=== PATIENT | male | born 1955 | race Two or more races ===

== ENCOUNTER → 2018-07-09 | Outpatient (CLI) | payer OTHER, BC ==
--- NOTE | 2018-07-09 09:37 | MR ---
EXAMINATION TYPE: MR knee LT wo con DATE OF EXAM: 07/09/2018 COMPARISON: None HISTORY: Left knee pain TECHNIQUE: Multiplanar, multisequence imaging of the left knee is performed without IV contrast. FINDINGS: MEDIAL MENISCUS: There is grade 3 abnormal signal in the posterior horn of the medial meniscus compat ible with a complex tear. There is extrusion of the medial meniscus. LATERAL MENISCUS: Intrasubstance signal seen within the lateral meniscus most typical of myxoid degen eration. CRUCIATE LIGAMENTS: The anterior and posterior cruciate ligaments are intact and unremarkable. COLLATERAL LIGAMENTS: The medial collateral ligament and lateral collateral ligament complex are inta ct. However there is increased signal surrounding the MCL compatible with strain. No definite tear. EXTENSOR MECHANISM: Visualized quadriceps and patellar tendons are intact. EFFUSION: There is a large suprapatellar bursal fluid collection. POPLITEAL CYST: A 2 cm popliteal fossa cyst noted TRICOMPARTMENT SPACES: There is reduction in the joint space of the medial compartment of the knee. T here is loss of cartilage involving the articular surface of the medial component of the tibia and fe mur. Fibrillation and chondromalacia medial patellar and lateral patellar facet noted. BONE MARROW SIGNAL: There is diffuse marrow edema involving the medial tibial plateau and articular s urface of the medial femur. Question a subtle subchondral depression of the medial tibial plateau. Co rrelate for history of recent trauma otherwise consider reactive marrow edema post arthritic changes. OTHER: Diffuse subcutaneous edema noted. IMPRESSION: 1. The left findings compatible with medial meniscal complex posterior horn tear was PseudoExtrusion. Marked arthropathy of the medial compartment knee joint with chondromalacia also noted. There is mar row edema involving the articular surface of the medial tibia and femur which could be reactive secon gila to the arthritic changes. Correlate clinically to exclude recent trauma. 2. MCL strain without evidence of overt tear 3. Diffuse subcutaneous edema 4. Small popliteal fossa cyst. 5. osteoarthritic changes with chondromalacia as discussed above. 6. moderate suprapatellar bursal fluid collection. 7. there is a suggestion of a tiny subchondral depression of the medial tibial plateau which may been the basis of a subchondral fracture.
== END | disposition home or self-care (01) ==
LOC: RADMRIMAIN 07:16
PROVIDERS: ATTEND Orthopaedic Surgery Sports Medicine
DX: M17.12 Unilateral primary osteoarthritis, left knee (principal); M94.262 Chondromalacia, left knee; S86.812A Strain of other muscle(s) and tendon(s) at lower leg level, left leg, initial encounter; M71.22 Synovial cyst of popliteal space [Baker], left knee

== ENCOUNTER → 2018-10-11 | Outpatient (CLI) | payer OTHER, BC ==
--- NOTE | 2018-10-11 16:14 | MR ---
EXAMINATION TYPE: MR lumbar spine wo con DATE OF EXAM: 10/11/2018 COMPARISON: NONE HISTORY: Low back pain, spondylosis without myelopathy, and lumbar region radiculopathy all per order . Tingling back pain for 2 months into right lower extremity per patient. TECHNIQUE: Multiplanar, multisequence imaging of the lumbar spine is performed without IV contrast. FINDINGS: Sagittal images of the lumbar spine show vertebral body heights to appear satisfactory. The re is slight grade 1 anterolisthesis of L4 on L5. Bilateral pars defect L5 level are felt present. Mu ltilevel disc desiccation is seen. There is mild disc space narrowing L1-L2 and L5-S1 levels . . Mul tilevel small posterior disc herniations are seen on sagittal images. The conus medullaris is normal in position and signal ending superior L1 level. Mild to moderate multilevel anterior spurring is see n with heterogeneous endplate changes centered right L1-L2 level. Axial images at T12-L1 level is felt within normal limits. Axial images at L1-L2 level shows mild to moderate broad disc bulge mildly effacing anterior thecal s ac, there is asymmetric mild to moderate right-sided anterior inferior neural foraminal narrowing. Le ft-sided neural foramen is patent. Axial images at L2-L3 level show moderate broad disc bulge mildly effacing anterior thecal sac and ca using mild bilateral anterior inferior neural foraminal narrowing. Mild facet degenerative changes bi laterally are present at this level. Axial images at L3-L4 level show mild/moderate broad-based posterior disc protrusion effacing anterio r thecal sac. There is mild facet degenerative changes and ligament flavum hypertrophy. There is mild to moderate left greater than right bilateral anterior inferior neural foraminal narrowing noted. Axial images at L4-L5 level show spondylolisthesis and broad-based posterior disc protrusion. There i s mild facet degenerative changes seen bilaterally. Spinal canal is preserved. There is mild right-si ded anterior inferior neural foraminal narrowing noted. Left-sided neural foramen is patent. Axial images at L5-S1 level show spondylolisthesis and moderate facet degenerative changes bilaterall y. There is broad-based right paracentral disc protrusion seen. There is effacement of the anterolate ral thecal sac and lateral recess with encroachment on central right S1 nerve felt present axial imag e 3. There is advanced right-sided neural foraminal narrowing encroaching on right L5 nerve also iden tified sagittal image 12. Left-sided neural foramen is patent. No suspicious incidental retroperitoneal findings are seen. IMPRESSION: Spondylolisthesis L5-S1 level with eccentric disc herniation effacing both exiting right L5 and central right S1 nerves likely accounting for patient's radiculopathy type symptoms.
== END | disposition home or self-care (01) ==
LOC: RADMRIMAIN 15:18
PROVIDERS: ATTEND Physical Medicine & Rehabilitation
DX: M43.17 Spondylolisthesis, lumbosacral region (principal); M51.27 Other intervertebral disc displacement, lumbosacral region
CPT/HCPCS: 72148

== ENCOUNTER 2019-07-17 18:45 | Emergency (ER) | payer OTHER, BC ==
[2019-07-17] MEDS ORDERED: ACETAMINOPHEN TAB 500 MG TAB PO STA (19:09)
[2019-07-17] MEDS ORDERED: SODIUM CHLORIDE 0.9% 1,000 ML IV STA (19:09)
--- NOTE | 2019-07-17 19:13 | ED ---
General Adult HPI - General Chief complaint: Fever Stated complaint: Post op fever Time Seen by Provider: 07/17/19 18:55 Source: patient Mode of arrival: ambulatory Limitations: no limitations - History of Present Illness Initial comments: Dictation was produced using [employer] dictation software. please excuse any grammatical, word or spelling errors. Chief Complaint: 64-year-old male presents with postoperative fever. History of Present Illness: Patient is a 64-year-old male. He has past medical history of osteomyelitis and prostate cancer. Patient's 5 days postop from prostatectomy procedure performed at [facility]. Patient had laparoscopic robotic minimally invasive surgery through the abdomen to remove his prostate. Patient was then fine postoperatively until today he began feeling worsening abdominal pain, weakness and fevers. Patient states he felt fine this morning and his symptoms really began to progress approximately 2 hours prior to arrival. He contacted his urologist/primary surgeon told him to come to the emergency department right away. Patient has any drainage from his surgical sites. Denies any nausea vomiting or diarrhea. He states that most of his pain is at the left lower quadrant of his abdomen. Patient denies any chest pain or shortness of breath at this time. Denies any cough. The ROS documented in this emergency department record has been reviewed and confirmed by me. Those systems with pertinent positive or negative responses have been documented in the HPI. All other systems are other negative and/or noncontributory. PHYSICAL EXAM: General Impression: Alert and oriented x3, not in acute distress HEENT: Normocephalic atraumatic, extra-ocular movements intact, pupils equal and reactive to light bilaterally, mucous membranes moist. Cardiovascular: Heart regular rate and rhythm, S1&S2 audible, no murmurs, rubs or gallops Chest: Lungs clear to auscultation bilaterally, no rhonchi, no wheeze, no rales Abdomen: Bowel sounds present, tenderness to the left lower quadrant area. Laparoscopic surgical sites are clean dry and intact without any drainage or erythema Musculoskeletal: Pulses present and equal in all extremities, no peripheral edema Motor: no focal deficits noted Neurological: CN II-XII grossly intact, no focal motor or sensory deficits noted Skin: Intact with no visualized rashes Psych: Normal affect and mood ED course: 64-year-old male presents with fever and abdominal pain status post prostatectomy 5 days ago. As upon arrival shows temperature 101.7. Rest vital signs within acceptable limits. Abdomen evaluation obtained. Mild leukocytosis of 12.3. Metabolic panel is unremarkable. Urinalysis shows greater than 182 red blood cells and greater than 182 white blood cells. This is likely secondary to recent prostatectomy. CT of the abdomen and pelvis was obtained. It showed fairly moderate to large size slightly and retroperitoneal hyperdense focal fluid collection. Findings suspicious for hematoma however there is concern for abscess. Given his clinical findings there is suspicion that CT findings may be an infectious source. Patient given 1 dose of Zosyn. Discussed patient case Dr. Meadows who is cap and hat production supervisor for Dr. Dinh who initially performed the prostatectomy procedure. Dr. Meadows recommend that that patient be given oral antibiotics however left to the patient to decide if they want to go directly to [facility] for further care. Patient and family member decided that they wanted to drive down here private vehicle to [facility] for urology evaluation. Discussed patient case with [facility] emergency Dr. Oden who is aware of patient for transfer. Patient will try via private vehicle. EKG interpretation: Ventricular rate 92, normal sinus rhythm, OR interval 132, QS 102, QTc 45. No OR prolongation, no QTC prolongation, no ST or T-wave changes noted. Overall, this EKG is unremarkable - Related Data Home Medications Medication Instructions Recorded Confirmed Acetaminophen [Tylenol Extra 500 mg PO Q6H PRN 07/17/19 07/17/19 Strength] Bacitracin Oint 1 applic TOPICAL TID 07/17/19 07/17/19 Docusate [Colace] 100 mg PO DAILY 07/17/19 07/17/19 Ibuprofen [Motrin Ib] 400 mg PO Q6H PRN 07/17/19 07/17/19 oxyCODONE HCL [OxyIR] 5 mg PO TID PRN 07/17/19 07/17/19 Allergies Allergy/AdvReac Type Severity Reaction Status Date / Time No Known Allergies Allergy Verified 07/17/19 19:36 Review of Systems ROS Statement: Those systems with pertinent positive or pertinent negative responses have been documented in the HPI. ROS Other: All systems not noted in ROS Statement are negative. Past Medical History Additional Past Medical History / Comment(s): Osteomyelitis right arm History of Any Multi-Drug Resistant Organisms: None Reported Past Surgical History: No Surgical Hx Reported Past Psychological History: No Psychological Hx Reported Smoking Status: Former smoker Past Alcohol Use History: Occasional Past Drug Use History: None Reported - Past Family History Father Family Medical History: Cancer Mother Family Medical History: Congestive Heart Failure (CHF) General Exam Limitations: no limitations Course Vital Signs 07/17/19 07/17/19 18:51 21:22 Temperature 101.7 F H 99.4 F Pulse Rate 88 91 Respiratory 18 16 Rate Blood Pressure 144/86 136/80 O2 Sat by Pulse 97 95 Oximetry Medical Decision Making - Lab Data Result diagrams: 07/17/19 19:26 07/17/19 19:26 Lab Results 07/17/19 07/17/19 07/17/19 Range/Units 19:26 19:26 19:26 WBC 12.3 H (3.8-10.6) k/uL RBC 4.64 (4.30-5.90) m/uL Hgb 14.6 (13.0-17.5) gm/dL Hct 43.0 (39.0-53.0) % MCV 92.7 (80.0-100.0) fL MCH 31.4 (25.0-35.0) pg MCHC 33.9 (31.0-37.0) g/dL RDW 14.5 (11.5-15.5) % Plt Count 244 (150-450) k/uL Neutrophils % 81 % Lymphocytes % 7 % Monocytes % 8 % Eosinophils % 2 % Basophils % 1 % Neutrophils # 10.0 H (1.3-7.7) k/uL Lymphocytes # 0.8 L (1.0-4.8) k/uL Monocytes # 0.9 (0-1.0) k/uL Eosinophils # 0.2 (0-0.7) k/uL Basophils # 0.1 (0-0.2) k/uL Sodium 135 L (137-145) mmol/L Potassium 4.0 (3.5-5.1) mmol/L Chloride 100 (98-107) mmol/L Carbon Dioxide 28 (22-30) mmol/L Anion Gap 7 mmol/L BUN 11 (9-20) mg/dL Creatinine 0.77 (0.66-1.25) mg/dL Est GFR (CKD-EPI)AfAm >90 (>60 ml/min/1.73 sqM) Est GFR (CKD-EPI)NonAf >90 (>60 ml/min/1.73 sqM) Glucose 130 H (74-99) mg/dL POC Glucose (mg/dL) (75-99) mg/dL POC Glu Senior Health Consultant ID Plasma Lactic Acid Hany (0.7-2.0) mmol/L Calcium 8.7 (8.4-10.2) mg/dL Urine Color Yellow Urine Appearance Cloudy (Clear) Urine pH 7.0 (5.0-8.0) Ur Specific Groves 1.010 (1.001-1.035) Urine Protein 1+ H (Negative) Urine Glucose (UA) Negative (Negative) Urine Ketones Negative (Negative) Urine Blood Large H (Negative) Urine Nitrite Positive (Negative) Urine Bilirubin Negative (Negative) Urine Urobilinogen <2.0 (<2.0) mg/dL Ur Leukocyte Esterase Large H (Negative) Urine RBC >182 H (0-5) /hpf Urine WBC >182 H (0-5) /hpf Urine WBC Clumps Moderate H (None) /hpf Amorphous Sediment Rare H (None) /hpf 07/17/19 07/17/19 Range/Units 19:26 19:33 WBC (3.8-10.6) k/uL RBC (4.30-5.90) m/uL Hgb (13.0-17.5) gm/dL Hct (39.0-53.0) % MCV (80.0-100.0) fL MCH (25.0-35.0) pg MCHC (31.0-37.0) g/dL RDW (11.5-15.5) % Plt Count (150-450) k/uL Neutrophils % % Lymphocytes % % Monocytes % % Eosinophils % % Basophils % % Neutrophils # (1.3-7.7) k/uL Lymphocytes # (1.0-4.8) k/uL Monocytes # (0-1.0) k/uL Eosinophils # (0-0.7) k/uL Basophils # (0-0.2) k/uL Sodium (137-145) mmol/L Potassium (3.5-5.1) mmol/L Chloride (98-107) mmol/L Carbon Dioxide (22-30) mmol/L Anion Gap mmol/L BUN (9-20) mg/dL Creatinine (0.66-1.25) mg/dL Est GFR (CKD-EPI)AfAm (>60 ml/min/1.73 sqM) Est GFR (CKD-EPI)NonAf (>60 ml/min/1.73 sqM) Glucose (74-99) mg/dL POC Glucose (mg/dL) 120 H (75-99) mg/dL POC Glu Senior Health Consultant ID Musa Buchanan Plasma Lactic Acid Hany 1.4 (0.7-2.0) mmol/L Calcium (8.4-10.2) mg/dL Urine Color Urine Appearance (Clear) Urine pH (5.0-8.0) Ur Specific Gro[place] (1.001-1.035) Urine Protein (Negative) Urine Glucose (UA) (Negative) Urine Ketones (Negative) Urine Blood (Negative) Urine Nitrite (Negative) Urine Bilirubin (Negative) Urine Urobilinogen (<2.0) mg/dL Ur Leukocyte Esterase (Negative) Urine RBC (0-5) /hpf Urine WBC (0-5) /hpf Urine WBC Clumps (None) /hpf Amorphous Sediment (None) /hpf Disposition Clinical Impression: Postoperative fever Disposition: OTHER INSTITUTION NOT DEFINED Condition: Fair Referrals: Aubrey Trotter DO [Primary Care Provider] - 1-2 days Time of Disposition: 22:56 - Out of Hospital Transfer - Req. Specs Out of Hospital Transfer - Requested Specifics: Other Emergency Center ([facility])
[2019-07-17 19:35] LABS: Glucose,Whole Blood 120 mg/dL (75-99)
[2019-07-17 19:40] LABS: Basophils # (A) 0.1 k/uL (0-0.2); Basophils % (A) 1 %; Eosinophils # (A) 0.2 k/uL (0-0.7); Eosinophils % (A) 2 %; HGB 14.6 gm/dL (13.0-17.5); Lymphocytes # (A) 0.8 k/uL (1.0-4.8); Lymphocytes % (A) 7 %; MCH 31.4 pg (25.0-35.0); MCHC 33.9 g/dL (31.0-37.0); MCV 92.7 fL (80.0-100.0); Mean Platelet Volume 6.6; Monocytes # (A) 0.9 k/uL (0-1.0); Monocytes % (A) 8 %; Neutrophils % (A) 81 %; Platelet Count 244 k/uL (150-450); RBC 4.64 m/uL (4.30-5.90); RDW 14.5 % (11.5-15.5); WBC 12.3 k/uL (3.8-10.6)
[2019-07-17 19:45] LABS: Amorphous Sediment,Urine Rare /hpf; Appearance,Urine Cloudy (Clear); Bilirubin,Urine Negative (Negative); Blood,Urine Large (Negative); Color,Urine Yellow; Glucose,Urine (UA) Negative (Negative); Ketones,Urine Negative (Negative); Leukocyte Esterase,Urine Large (Negative); Nitrite,Urine Positive (Negative); Protein,Urine 1+ (Negative); RBC,Urine >182 /hpf (0-5); Urobilinogen,Urine <2.0 mg/dL (<2.0)
[2019-07-17 20:00] LABS: African American GFR (CKD) >90 (>60 ml/min/1.73 sqM); Anion Gap 7 mmol/L; Blood Urea Nitrogen 11 mg/dL (9-20); Calcium 8.7 mg/dL (8.4-10.2); Carbon Dioxide 28 mmol/L (22-30); Chloride 100 mmol/L (98-107); Glucose 130 mg/dL (74-99); Sodium 135 mmol/L (137-145)
--- NOTE | 2019-07-17 20:23 | XR ---
EXAMINATION TYPE: XR chest 2V DATE OF EXAM: 07/17/2019 COMPARISON: Chest x-ray July 08, 2016 HISTORY: Prostatectomy surgery 5 days ago with fever TECHNIQUE: Frontal and lateral views of the chest are obtained. FINDINGS: There is chronic parenchymal change without suspicious new focal air space opacity, pleura l effusion, or pneumothorax seen. Poor inspiration is noted. The cardiac silhouette size is mildly en larged with atherosclerotic and ectatic aorta. The osseous structures are intact. IMPRESSION: Poor inspiration, mild cardiomegaly and chronic parenchymal changes without suspicious ac napaimute infiltrate.
--- NOTE | 2019-07-17 20:58 | CT ---
EXAMINATION TYPE: CT abdomen pelvis w con DATE OF EXAM: 07/17/2019 COMPARISON: None. HISTORY: post-op abdominal pain and fever after prostatectomy [address] DLP: 1458.6 mGycm, Automated Exposure Control for Dose Reduction was Utilized. CONTRAST: CT scan of the abdomen and pelvis is performed without oral but with IV Contrast, patient injected wi th 100 mL of Isovue 300. FINDINGS: LUNG BASES: Patchy left greater than right bibasilar linear atelectasis and/or infiltrate. LIVER/GB: No significant abnormality is appreciated. PANCREAS: No significant abnormality is seen. SPLEEN: Few calcifications are scattered throughout the spleen. ADRENALS: No significant abnormality is seen. KIDNEYS: Some central parapelvic cysts in the left kidney. Symmetric cortical medullary uptake and ex cretion without hydronephrosis seen bilaterally. Martinez catheter in decompressed bladder which is subo ptimally evaluated. BOWEL: Evaluation bowel suboptimal secondary to lack of enteric contrast. No suspicious small or larg e bowel dilatation seen. Mild wall thickening involving sigmoid colon and rectum is felt present. PROSTATE/SEMINAL VESICLES: Some density posterior to the Martinez catheter could reflect small prostatic bed hematoma and/or residual seminal vesicle superiorly. No distinct surgical clips are seen. LYMPH NODES: No greater than 1cm abdominal or pelvic lymph nodes are appreciated. OSSEOUS STRUCTURES: Posterior intraventricular rods and screws with metallic disc material L5-S1 leve l. Slight grade 1 anterolisthesis L5 on S1. Mild disc space narrowing and spurring L1-L2 level. OTHER: Small foci of air in the anterior lower abdominal and pelvic wall. Foci of air extend to the b ilateral superior scrotal region as well as into the visualized right scrotum. There is moderate size thin-walled slightly hyperdense focal fluid collection anterior to the decompressed bladder measurin g nearly 15 cm transversely coronal image 371 by 16 cm craniocaudal dimension sagittal image 72 by pr oximally 7 cm AP diameter finding suspicious for fairly moderate to large size hematoma with local ma ss effect over the anterior aspect of the lower abdomen and pelvis. Developing abscess cannot be excl uded. It extends nearly to level of umbilicus. IMPRESSION: Fairly moderate to large size slightly and retroperitoneal hyperdense focal fluid collect ion anteriorly involving the lower abdomen and upper pelvis. Findings suspicious for hematoma but dev eloping abscess cannot be excluded given patient's history.
[2019-07-17] MEDS ORDERED: PIPERACILLIN-TAZOBACTAM 3.375 GM in SODIUM CHLORIDE 0.9% 100 ML IVPB STA (21:03)
[2019-07-17 21:23] VITALS: RESP 16
[2019-07-17 23:34] VITALS: BP 115/76; PULSE 89; TEMP 98.9
== END 2019-07-17 23:34 | disposition other institution (70) ==
LOC: EC 18:45
DX: R50.82 Postprocedural fever (principal); R10.32 Left lower quadrant pain; R53.1 Weakness; D72.829 Elevated white blood cell count, unspecified; Z87.891 Personal history of nicotine dependence; Z85.46 Personal history of malignant neoplasm of prostate; Z90.79 Acquired absence of other genital organ(s)
CPT/HCPCS: 36415; 80048; 83605; 85025; 81001; 87040; 87086; 71046; 74177; 99285; 96365; 96361; J2543; Q9967; 87077; 87186

== ENCOUNTER → 2019-08-04 | Outpatient (CLI) | payer OTHER, BC ==
--- NOTE | 2019-08-05 15:52 | CT ---
EXAMINATION TYPE: CT abdomen pelvis wo/w con DATE OF EXAM: 08/04/2019 COMPARISON: 07/17/2019 INDICATION: CAD 5.46 prostate cancer DLP: 2002.5 mGycm, Automated exposure control for dose reduction was used. CONTRAST: 100 mL of Isovue 300. Study performed with Oral Contrast TECHNIQUE: Axial images were obtained from above the diaphragm to the pubic rami in the axial plane a t 5 mm thick sections. Reconstructed images are reviewed on the computer in the coronal plane. FINDINGS: Limited CT sections are obtained the lung bases. The lung bases are clear. CT ABDOMEN: Liver: Normal Spleen: Small calcified granuloma within the spleen. Pancreas: Normal Adrenal glands: The adrenal glands are normal. Gallbladder: Normal Kidneys: No masses are evident. No hydronephrosis is present. No cysts are present. Delayed images were obtained through the kidneys, which remain unremarkable. Aorta: Vascular calcification is within the aorta. Inferior vena cava: Normal. CT PELVIS: There is some limitation in the upper pelvis due to beam hardening artifact from fixation pedicle screws in the lower lumbar spine. Loops of bowel within the abdomen and pelvis are normal. There are loops of bowel which are incom pletely distended or lack oral contrast limiting their evaluation. Appendix: Normal as visualized. Urinary bladder: A suprapubic catheter is present and this is above the urinary bladder. The collecti on in the anterior pelvis is significantly diminished over the interval. Thickening of 2.0 cm at the inferior aspect of this collection. No significant distention of the supe rior portion of the level of the drainage catheter is evident. Bladder contains a Martinez catheter. Genitourinary structures: Prostate is not identified. Osseous structures: No suspicious lytic or sclerotic lesions. IMPRESSIONS: 1. Drainage catheter within the suprapubic space. No significant collections are evident at this syeda e. 2. Martinez catheter.
== END | disposition home or self-care (01) ==
LOC: RADCTMAIN 15:48
PROVIDERS: ATTEND Urology
DX: B99.8 Other infectious disease (principal); Z93.6 Other artificial openings of urinary tract status
CPT/HCPCS: 74178; Q9967

== ENCOUNTER → 2020-04-13 | Outpatient (CLI) | payer OTHER, BC | END | disposition home or self-care (01) | LOC: LABWHC1 10:56 | PROVIDERS: ATTEND Nurse Practitioner | DX: Z85.46 Personal history of malignant neoplasm of prostate (principal); Z90.79 Acquired absence of other genital organ(s) | CPT/HCPCS: 36415; 84153 ==

== ENCOUNTER → 2021-10-03 | Outpatient (CLI) | payer OTHER, BC ==
[2021-10-03 15:12] LABS: Basophils # (A) 0.08 X 10*3/uL (0.00-0.10); Basophils % (A) 1.5 %; Eosinophils # (A) 0.19 X 10*3/uL (0.04-0.35); Eosinophils % (A) 3.5 %; HCT 48.5 % (39.6-50.0); HGB 15.4 g/dL (13.0-17.0); Lymphocytes # (A) 1.85 X 10*3/uL (0.90-5.00); Lymphocytes % (A) 34.3 %; MCH 30.8 pg (27.0-32.0); MCHC 31.8 g/dL (32.0-37.0); Mean Platelet Volume 9.7 fL (9.5-12.2); Neutrophils # (A) 2.53 X 10*3/uL (1.80-7.70); Neutrophils % (A) 46.8 %; Platelet Count 214 X 10*3/uL (140-440); RDW 12.9 % (11.5-14.5)
[2021-10-03 16:09] LABS: African American GFR (CKD) 106.3 (60.0-200.0); Albumin 4.3 g/dL (3.8-4.9); Albumin/Globulin Ratio 2.09 (1.60-3.17); Anion Gap 11.8 mmol/L (10.00-18.00); BUN/Creat Ratio 24.13 Ratio (12.00-20.00); Blood Urea Nitrogen 20.7 mg/dL (9.0-27.0); Calcium 8.9 mg/dL (8.7-10.3); Carbon Dioxide 24.9 mmol/L (20.0-27.5); Globulin 2.1 g/dL (1.6-3.3); Non-African American GFR(CKD) 91.7 (60.0-200.0); Potassium 4.8 mmol/L (3.5-5.5); Total Bilirubin 0.4 mg/dL (0.30-1.20); Total Protein 6.4 g/dL (6.2-8.2)
[2021-10-03 16:38] LABS: Chol/HDL Ratio 2.84 Ratio
== END | disposition home or self-care (01) ==
LOC: LABWHC1 08:44
PROVIDERS: ATTEND Family Medicine
DX: Z00.00 Encounter for general adult medical examination without abnormal findings (principal); E78.5 Hyperlipidemia, unspecified
CPT/HCPCS: 36415; 80053; 80061; 83721; 85025

== ENCOUNTER 2022-04-16 08:38 | Day surgery (SDC) | payer BC ==
[2022-04-15 09:40] VITALS: BMI 28.2
[2022-04-16] MEDS ORDERED: LIDOCAINE 1% (10MG/ML) FOR IV START INTRADERMA PRN (08:48)
[2022-04-16] MEDS ORDERED: LACTATED RINGERS 1,000 ML IV SCH (08:48)
[2022-04-16] MEDS ORDERED: LACTATED RINGERS 1,000 ML IV ONE (08:53)
[2022-04-16 09:11] VITALS: TEMP 97.2
[2022-04-16] MEDS ORDERED: PROPOFOL 10 MG/ML 20 ML VIAL IV ONE (09:19)
[2022-04-16] MEDS ORDERED: LIDOCAINE 2% INJ 20 MG/ML (2 ML VIAL) ONE (09:19)
--- NOTE | 2022-04-16 09:33 | P.PCN ---
Date of Procedure: 04/16/22 Procedure(s) Performed: BRIEF HISTORY: Patient is a 67-year-old pleasant whites male scheduled for an elective colonoscopy as a part of evaluation of prior history of colon polyps. His last colonoscopy was 5 years ago. PROCEDURE PERFORMED: Colonoscopy. PREOPERATIVE DIAGNOSIS: History Colon polyps. IV sedation per Anesthesia. PROCEDURE: After informed consent was obtained, the patient, was brought into the endoscopy unit. IV sedation was administered by Anesthesia under continuous monitoring. Digital rectal examination was normal. Initially the Olympus CF-160 flexible video colonoscope was then inserted in the rectum, gradually advanced into the cecum without any difficulty. Careful examination was performed as the scope was gradually being withdrawn. Ileocecal valve and the appendiceal orifice were visualized and appeared normal. Prep was excellent. Mucosa of the cecum, ascending colon, transverse colon, descending colon, sigmoid colon, and rectum appeared normal. Retroflexion was performed in the rectum and small internal hemorrhoids were seen. The patient tolerated the procedure well. IMPRESSION: Normal-appearing colon from rectum to cecum with no evidence of colorectal neoplasia . Small internal hemorrhoids. RECOMMENDATIONS: Findings of this examination were discussed with the patient as well as his family.. He was advised to have a repeat screening colonoscopy in 5 years because of the prior history of colon polyps.
[2022-04-16 09:42] VITALS: PULSE 56; RESP 16
[2022-04-16 09:56] VITALS: BP 134/88
== END 2022-04-16 10:08 | disposition home or self-care (01) ==
LOC: ORWHC2ENDO 08:38
PROVIDERS: ATTEND Internal Medicine Gastroenterology
DX: Z86.010 Personal history of colon polyps (principal); K64.8 Other hemorrhoids; Z85.46 Personal history of malignant neoplasm of prostate; Z98.1 Arthrodesis status; Z87.891 Personal history of nicotine dependence
CPT/HCPCS: 45378; J2704; J2001